=== PATIENT | female | born 1960 | race American Indian/Alaskan Native ===

== ENCOUNTER 2017-10-13 12:04 | Emergency (ER) | payer SELFPAY ==
[2017-10-13 12:34] VITALS: BP 208/112
== END 2017-10-13 15:41 | disposition left against medical advice (07) ==
LOC: ED 12:04
DX: R03.0 Elevated blood-pressure reading, without diagnosis of hypertension (principal); R73.9 Hyperglycemia, unspecified; Z53.21 Procedure and treatment not carried out due to patient leaving prior to being seen by health care provider
CPT/HCPCS: 82962